=== PATIENT | female | born 1955 | race Caucasian/White ===

== ENCOUNTER 2017-02-10 06:29 | Day surgery (SDC) | payer OTHER ==
[~2017-02-10] VITALS: Ht 180.3 cm; Wt 85.1 kg
[2017-02-10] MEDS: Lactated Ringer's 1,000 ML IV SCH ×2 (06:47→08:16)
[2017-02-10 06:55] VITALS: BP 120/80; PULSE 68; RESP 16; O2SAT 95
--- NOTE | 2017-02-10 06:56 | PCM.HPANE ---
Patient Data Surgeon Admitting Provider: Attending Provider:Chiki Huang DO Primary Care Physician:Rita Jarquin MD Other Provider: Reason for Visit Right Middle Finger Trigger Finger Ht/WT & BMI Height (Feet): 5 Height (Inches): 10 Weight (Kilograms): 85.82 Body Mass Index 27.00 Allergies Coded Allergies: No Known Allergies (Unverified , 02/04/17) Past Anesthesia History Anesthesia History: Denies:: Anesthesia Reactions (nausea after tubal), Fam Anesthesia Reaction Additional Information: PONV Diabetes History Hx Diabetes?: No MRSA MRSA: No Medications Hypertension Medication: No Home Meds Incl Beta Neeraj: No No Active Prescriptions or Reported Meds History History of ENT Problems?: No HEENT History: Positive for:: Sinus Problem (currently has cold) Denies:: Abnormal Airway Cataracts Difficult Intubation Dysphagia Glaucoma Hearing Problem TMJ Denture Type: None Teeth Condition: Within Normal Limits Hx of Heart Problems?: No Cardiovascular History: Denies:: AICD Abdominal Aortic Aneurism Atrial Fibrillation Cardiac Surgery Chest Pain Congestive Heart Failure Coronary Artery Disease Edema Heart Murmur Hypertension Irregular Heartbeat Pacemaker Peripheral Vascular Rheumatic Fever Thrombophlebitis Valvular Heart Disease Hx of Respiratory Problem?: No Respiratory History: Denies:: Asthma COPD Chest Surgery Cough Dyspnea Emphysema Hemoptysis Oxygen Administration Pneumonia Pulmonary Embolism Tuberculosis Use of C-PAP Machine Use of Inhalers / NEBS Hx Neurologic Problems?: No Neurological History: Denies:: Alzheimer's Disease CVA Dementia Dizziness Headaches Multiple Sclerosis Parkinson's Disease Peripheral Neuropathy Seizures TIA Hx of GI Problems?: No Gastrointestinal History: Denies:: Cirrhosis Diverticulitis Gall Bladder Disease Gastroesphageal Reflux Gastrointestinal Bleeding Heartburn Hepatitis Hiatal Hernia Liver Disease Rectal Bleeding Hx of Problems?: No Genitourinary History: Denies:: HX of Hemodialysis Kidney Stones Urinary Tract Infection Female Hx: Denies:: Currently (tubal ) Endometriosis Pelvic Inflammatory Problems with Breasts? Hx Musculoskeletal Problems?: Yes Musculoskeletal History: Positive for:: Musculoskeletal Trauma (right hand trigger finger ) Osteoarthritis Denies:: Back Injury Degenerative Joint Fibromyalgia Joint Replacement Myasthenia Gravis Rheumatoid Arthritis Systemic Lupus Hx of Psycho/Social Problems?: Yes Psycho Social History: Positive for:: Anxiety (on no meds- socialization and being outside, ) Hx Depression Denies:: Bipolar Disorder Suicide Attempt Hx Surgeries?: Yes (tubal ) Hx Any Other Health Problems?: Yes Other History: Denies:: Cancer Thyroid Disease History Blood Transfusions: Positive for:: Accept Blood Products? Denies:: Blood Transfusions Hx Diabetes: No Hx Alcohol Use: YesAlcoholic Drinks Per Day: one drink weeklyHx Substance Use : NoHave You Smoked inLast 12 mo: Yes Stop/Bang S-Snoring: Do You Snore Loudly: No T-Tired: feel tired, fatigued: No O-Obsered: Observed not breath: No P-Blood Pressure: treated: No B- Body Mass Index > 35 kg/m2: No A- Age over 50: Yes N- Neck Large Circumference: No G- Gender Male: Yes LISA Total Score: 2 Risk Assessment Category Category 1A: Patient has history of documented sleep apnea, and HAS NOT received any narcotic, sedative or anesthesia administration during this stay. Category 1B: Patient has history of documented sleep apnea, and HAS received any narcotic , sedative or anesthesia administration during this stay Category 2: Patient has SUSPECTED Obstructive Sleep Apnea, and HAS received any narcotic , sedative or anesthesia administration during this stay. Category 3: Patient has SUSPECTED Obstructive Sleep Apnea and HAS NOT received narcotic, sedative or anesthesia administration during this stay. Category 4: Outpatient in Procedural Areas with known sleep apnea or who screen positive for High Risk via the STOP/BANG questionnaire. Exam Exam General Appearance: Alert HEENT/AIRWAY: MP 2 Lungs: Clear to Auscultation Heart: Exam Unremarkable Meds/Labs/Diagnostics Admission Meds Current Medications Lactated Ringer's (Lr) 1,000 ml @ 120 mls/hr Q8H20M IV Last administered on t 06:47; Start 02/10/17 at 05:00; Stop 02/10/17 at 13:19 Plan Impression Patient chart reviewed, patient interviewed and anesthestic plan with risks, benefits, and alternatives discussed, and informed consent obtained. NPO per Anesth. Guidelines: Yes ASA Physical Status: ASA2 Mod Systemic Disease Anesthetic Plan: MAC Bene/Risks/Altern/Consents: Yes HP Complete Prior to Induction: Yes Adalberto Perez MD Feb 10, 2017 06:56
[2017-02-10] MEDS ORDERED: HYDROcodone-APAP 5-325 mg Tablet PO PRN (07:05)
[2017-02-10] MEDS ORDERED: Lactated Ringer's 500 ML IV PRN (08:13)
[2017-02-10] MEDS ORDERED: Lactated Ringer's 1,000 ML IV SCH (08:13)
[2017-02-10] MEDS ORDERED: HYDROmorphone 1 mg/mL Inj IVPUSH PRN (08:15)
[2017-02-10] MEDS ORDERED: Ondansetron 2 mg/mL 2 mL Inj IVPUSH PRN (08:15)
[2017-02-10] MEDS ORDERED: Phenylephrine 10,000 mCg/mL Inj IVPUSH PRN (08:15)
[2017-02-10] MEDS ORDERED: fentaNYL-PF 50 mCg/mL 2 mL Inj IVPUSH PRN (08:15)
[2017-02-10] MEDS ORDERED: MetoCLOpramide 5 mg/mL 2 mL Inj IVPUSH PRN (08:15)
[2017-02-10] MEDS ORDERED: Dexamethasone 4 mg/mL Inj IVPUSH PRN (08:15)
[2017-02-10] MEDS ORDERED: EPHEDrine Sulfate 50 mg/mL Inj IVPUSH PRN (08:15)
[2017-02-10] MEDS ORDERED: Sodium Bicarb (50 mEq) 8.4% 1 mEq/mL 50 mL Syringe IVPUSH ONE (08:32)
[2017-02-10] MEDS ORDERED: Lidocaine 1%-Epi 1:100,000 20 mL Inj NERVEBLOCK ONE (08:32)
[2017-02-10 08:43] VITALS: BP 113/75; PULSE 59; RESP 16; O2SAT 96
--- NOTE | 2017-02-10 10:13 | OP ---
[address] [address] OPERATIVE REPORT PATIENT: FLORES SMILEY : 1955 MR#: [id number] ADMIT: 02/10/2017 JOB ID: [id number] DATE OF SURGERY: 02/10/2017 SURGEON: Chiki Huang DO PREOPERATIVE DIAGNOSIS(ES): Right middle finger trigger finger. POSTOPERATIVE DIAGNOSIS(ES): Right middle finger trigger finger. PROCEDURE: Right middle finger A1 ranjit release. ANESTHESIA: Monitored anesthesia care with local. HISTORY: The patient is a pleasant 61-year-old female with a longstanding history of right middle finger catching and locking. She recently had an injection with only short-term relief of her symptoms. She continued to have pain and stiffness as well as catching and locking with range of motion of the middle finger. We discussed proceeding with an A1 ranjit release. She understood the risks include, but not limited to, neurovascular injury, tendon injury, infection, failure of fixation, stiffness, persistent pain which may require further intervention. The patient had all questions answered. Consent was signed and placed in chart. PROCEDURE IN DETAIL: The patient was brought to the operative suite and placed supine on the operating table. Surgical time-out was performed. Everyone in the room was in agreement. After appropriate anesthesia was obtained, the right hand was then prepped and draped in a sterile fashion. A 1.5 cm oblique incision was made within a crease just above the middle finger A1 ranjit. Dissection was carried down directly onto the A1 ranjit, taking care to protect and preserve the neurovascular bundles on both the radial and ulnar margins. The flexor tendon sheath was identified and the A1 ranjit was incised in line with the underlying flexor tendons. The A1 ranjit was completely released. The patient was asked to demonstrate a full composite fist and was able to do so without any catching or locking of the middle finger. There was some mild stiffness into full extension of the middle finger. Copious irrigation was performed followed by closure of skin with 5-0 nylon simple interrupted fashion. The patient was then placed in a bulky soft dressing. ESTIMATED BLOOD LOSS: Less than 1 cc. COMPLICATIONS: None. DISPOSITION: The patient tolerated the procedure well. Anesthesia was reversed. The patient was transferred to the PACU for recovery. POSTOPERATIVE PLAN: The patient will follow up in the office in 2 weeks for suture removal and to start initiating range of motion and scar mobilization. I have instructed her to start working on range of motion immediately postop and if she is still stiff due to the amount of her chronicity of her symptoms that at the 2 week follow up that if she is unable to demonstrate full fist we will have her enrolled in formal occupational therapy.
== END 2017-02-10 23:59 | disposition home or self-care (01) ==
LOC: SAS 06:29
PROVIDERS: ATTEND Orthopaedic Surgery
DX: M65.331 Trigger finger, right middle finger (principal); F17.210 Nicotine dependence, cigarettes, uncomplicated
CPT/HCPCS: 26055; J7120